=== PATIENT | female | born 1940 | race Caucasian/White ===

== ENCOUNTER 2016-11-15 12:41 | Emergency (ER) | payer MEDICARE, OTHER ==
[~2016-11-15] VITALS: Ht 157.5 cm; Wt 58.6 kg
[~2016-11-15 12:41] MED LIST: ALBU8.5H2 INHALATION; BIOT1CAP3 PO; CALC1TAB23 PO; CYCL5TAB PO; ESTR0.5T4 VAGINAL; FERR-83 PO; FOLI0.4T2 PO; FUR20 PO; GABA-502 PO; LOSA25TA21 PO; METO50TA3 PO; MILK175C4 PO; MONT10TA23 PO; MULT-908 PO; MYCO500T3 PO; OMEG-38 PO; OMEP20CA11 PO; PROP225T PO; RES15 PO; RITUX IV; WARF2TAB7 PO; WARF2TAB9 PO
[2016-11-15 12:48] VITALS: BP 160/85; PULSE 77; RESP 16; O2SAT 93
[2016-11-15 13:07] LABS: BASOPHILS % (AUTO) 0.3 % (0-3); EOSINOPHILS % (AUTO) 0.1 % (0-5); MONOCYTES % (AUTO) 6.5 % (4-12); Mean Corpuscular Hemoglobin 34.5 pg (27.0-35.0); Mean Corpuscular Volume 104.9 fL (81-100); NEUTROPHILS % (AUTO) 84.1 % (40-74); Platelet Count 235 bil/L (150-400)
[2016-11-15 13:23] LABS: Magnesium 2.3 mg/dL (1.6-2.6)
[2016-11-15] MEDS ORDERED: Ondansetron 2 mg/mL 2 mL Inj ONE ×2 (13:32→13:35)
[2016-11-15] MEDS ORDERED: Ondansetron 2 mg/mL 2 mL Inj IVPUSH ONE (13:35)
[2016-11-15] MEDS ORDERED: 0.9% Sodium Chloride 1,000 ML IV ONE (13:35)
[2016-11-15] MEDS: HYDROmorphone 0.5 mg/0.5 mL iSecure Syringe IVPUSH PRN ×2 (13:48→14:53)
--- NOTE | 2016-11-15 14:14 | DRSVH ---
PROCEDURE: X-RAY CHEST, TWO VIEWS ([id number]) INDICATIONS: 75 year-old female with chest pain and nausea since last night. TECHNIQUE: 2 views of the chest were acquired. COMPARISON: [facility], CR, XR CHEST 2VW, 08/20/2016, 18:48. [facility], CR , XR CHEST 2VW, 11/21/2015, 15:11. [facility], CR, XR CHEST 1VW (PORTABLE), 04/07/2015, 1: 46. FINDINGS: Surgical changes and devices: Multiple abdominal surgical clips are again noted. Lungs and pleura: No pleural effusions or pneumothorax. Lung volumes are decreased, with patchy ling ular and retrocardiac atelectasis. Mediastinum: Mediastinal contours are normal. Heart size is normal. There is aortic atherosclerosi s. Bones and chest wall: No suspicious bony abnormalities. Soft tissues appear unremarkable. IMPRESSION: Decreased lung volumes, with patchy left lower lung atelectasis. Dictated by: Miguel Vera M.D. on 11/15/2016 at 14:10 Approved by: Miguel Vera M.D. on 11/15/2016 at 14:12
[2016-11-15 14:44] VITALS: BP 152/84; PULSE 83; RESP 21; O2SAT 88
--- NOTE | 2016-11-15 14:44 | ED.REPORT ---
HPI-Abd Pain F 40 and Over Date of Service Nov 15, 2016 ED Provider: Samm Petty MD Pt is a 75 year old female with a hx of multiple GI surgeries, Afib on Warfarin , CHF, CAD, hyperlipidemia, and HTN presenting to the ED complaining of epigastric abdominal pain radiating to her back onset yesterday. Associated symptoms include nausea and vomiting (started in the ED after pain medication), and diarrhea. Denies bloody stools, constipation, chest pain, SOB, fever, chills , dysuria, cough, or hematuria. She states that she gets episodes like this quite frequently due to her many abdominal surgeries, and that she can usually handle it at home. Nursing Notes Stated Complaint: ABDOMINAL PAIN Chief Complaint: Female Abdominal Pain Nursing Notes Reviewed: Yes Allergies: Coded Allergies: Penicillins (Verified Allergy, Severe, SWELLING, 11/21/15) Sulfa (Sulfonamide Antibiotics) (Verified Allergy, Unknown, 11/21/15) clonidine (Verified Allergy, Unknown, 11/21/15) lisinopril (Verified Allergy, Unknown, 11/21/15) morphine (Verified Allergy, Unknown, 11/16/15) N/V Scheduled Albuterol HFA (Proair HFA) 8.5 Gm Hfa.aer.ad 2 PUFFS INHALATION Q4H Calcium Carbonate/Vitamin D3 (Os-Gagandeep 500+D3 Caplet) 500 Mg-600 Tablet 1 EACH PO DAILY Calcium Carbonate/Vitamin D3 (Os-Gagandeep 500+D3 Caplet) 500 Mg-600 Tablet 1 EACH PO DAILY Estradiol (Estrace) 0.5 Mg Tablet 0.1 MG VAGINAL WEEKLY Ferrous Sulfate (Ferrous Sulfate) 325 Mg Tablet 325 MG PO DAILY Folic Acid (Folic Acid) 0.4 Mg Tablet 0.4 MG PO DAILY Furosemide (Furosemide) 20 Mg Tab 20 MG PO BID Gabapentin (Gabapentin) 300 Mg Capsule 300 MG PO TID Losartan Potassium (Losartan Potassium) 25 Mg Tablet 50 MG PO HS Metoprolol Tartrate (Metoprolol Tartrate) 50 Mg Tablet 50 MG PO BID Milk Thistle Seed Extract (Milk Thistle) 175 Mg Capsule 175 MG PO DAILY Montelukast (Montelukast) 10 Mg Tablet 10 MG PO HS Multivits Min/Iron/FA/Herb#186 (Hair, Skin & Nails Caplet) 1 Each Tablet 1 EACH PO DAILY Mycophenolate Mofetil (Mycophenolate Mofetil) 500 Mg Tablet 1,000 MG PO BID [place]-3/Dha/Epa/Fish Oil (Fish Oil 1,000 mg Softgel) 1 Each Capsule 1 EACH PO DAILY Omeprazole (Omeprazole) 20 Mg Capsule.dr 20 MG PO BID Propafenone (Propafenone) 225 Mg Tablet 225 MG PO BID Warfarin Sodium (Warfarin Sodium) 2 Mg Tablet 4 MG PO QPM take 2 tablets daily exept 1 2mg tablet on Saturday Warfarin Sodium (Jantoven) 2 Mg Tablet 4 MG PO DAILY Scheduled PRN Cyclobenzaprine (Cyclobenzaprine) 5 Mg Tablet 5 MG PO TID PRN PRN Spasm Ondansetron ODT (Zofran ODT) 4 Mg Tablet 4 MG PO Q4H PRN PRN For Nausea Temazepam (Temazepam) 15 Mg Capsule 15 MG PO HS PRN PRN For Insomnia Miscellaneous Medications Biotin (Biotin) 1 Mg Capsule 1 MG PO Rituximab (Rituxan) 100 Mg/10 Ml Vial 1,000 MG IV General Time Seen by MD: 14:28 Chief Complaint Abdominal pain Hx Obtained From: Patient, EMS Arrived By: Ambulance Sudden in Onset?: No Onset Occurred: Yesterday Symptom Duration: Since onset Progression since Onset: Constant Location: : Epigastric Quality: Painful Severity: Current: Severe Severity: Maximum: Severe Recent Healthcare: No recent doctor visit, No recent hospitalization Similar Sx Previous: Yes Past Medical History Past Medical History Notes: PCP: Dr. Alex Franklin Pt seen in ED 3 days ago for bleeding, INR 10, Head CT normal, given vit K and warfarin held Past Medical History Rheumatoid arthritis on prednisone Chronic anemia paroxysmal atrial fibrillation (anticoagulated on warfarin) on propafenone ho DVT GERD Reports: Congestive heart failure, Coronary artery disease, GERD, Hyperlipidemia , Hypertension Reports: Atrial fibrillation Past Surgical History Multiple abdominal surgeries Back surgery 4 Rouex on Y ho colectomy Spinal surgery L3-5 Reports: Cholecystectomy Reports: Carpal tunnel Smoking History Never Smoker Social History Alcohol Use: Denies alcohol use Drug Use: Denies drug use Other Social History: Local resident Ambulatory Status Independent Review of Systems Constitutional: Denies: Chills, Fever Respiratory: Denies: Non-productive cough, Shortness of breath Cardiovascular: Denies: Chest pain GI: Reports: Abdominal pain, Diarrhea, Nausea, Vomiting, Denies: Bloody/tarry stool, Constipation Female: Denies: Dysuria, Hematuria Musculoskeletal: Reports: Back pain Complete sys rev & neg: except as marked. Physical Exam Vital Signs Vital Signs (First) Date Time Temp Pulse Resp B/P Pulse Ox O2 Delivery O2 Flow Rate FiO2 11/15/16 12:48 36.9 77 16 160/85 93 Room Air Initial VS: Reviewed Head / Eyes: Atraumatic, Normocephalic, PERRL ENT: Mucous membranes moist, Conjunctiva normal, No scleral icterus Extremities: Vascular intact, Neuro intact, No swelling, No tenderness Skin: Warm, Dry, No cyanosis Neurologic: Alert, Oriented, Nonfocal Psychiatric: Mood/affect normal, Behavior normal, Normal thought content General/Constitutional: Awake, Alert, No acute distress Respiratory / Chest: Atraumatic, Breath sounds NL, Breath sounds = bilat, No respiratory distress Cardiovascular: Heart rate NL, Regular rhythm, Heart sounds NL, No murmurs Abdomen: Atraumatic, Soft Mild epigastric tenderness Interpretation & Diagnostics Lab Results Interpretation Result Diagram: 11/15/16 1248 11/15/16 1248 Test 11/15/16 12:48 White Blood Count 7.1th/mm3 (3.8-10.1) Red Blood Count 3.88mil/mm3 (3.90-5.20) Hemoglobin 13.4g/dL (12.0-15.6) Hematocrit 40.7% (35.0-46.0) Mean Corpuscular Volume 104.9fL (81-100) Mean Corpuscular Hemoglobin 34.5pg (27.0-35.0) Mean Corpuscular Hemoglobin Concent 32.9% (32.0-37.0) Red Cell Distribution Width 11.8% (12.3-15.4) Platelet Count 235bil/L (150-400) Neutrophils (%) (Auto) 84.1% (40-74) Lymphocytes (%) (Auto) 8.6% (14-46) Monocytes (%) (Auto) 6.5% (4-12) Eosinophils (%) (Auto) 0.1% (0-5) Basophils (%) (Auto) 0.3% (0-3) Sodium Level 136mEq/L (134-144) Potassium Level 4.3mEq/L (3.5-5.2) Chloride Level 94mEq/L (97-108) Carbon Dioxide Level 27mmol/L (18-29) Blood Urea Nitrogen 21mg/dL (8-27) Creatinine 0.88mg/dL (0.57-1.00) Estimat Glomerular Filtration Rate 90mL/min (>59) Glucose Level 162mg/dL (60-99) Calcium Level 10.1mg/dL (8.5-10.1) Magnesium Level 2.3mg/dL (1.6-2.6) Total Bilirubin 0.4mg/dL (0.0-1.2) Aspartate Amino Transf (AST/SGOT) 40U/L (0-50) Alanine Aminotransferase (ALT/SGPT) 31U/L (0-32) Alkaline Phosphatase 122U/L (25-165) Troponin T < 0.010ug/L (0.0-0.011) Total Protein 8.4g/dL (6.4-8.4) Albumin 4.2g/dL (3.4-5.0) Lipase 51U/L (13-60) ECG Interpretation ECG Interpretation: T wave inversions v1-v5 which is unchanged from old. Time: 13:19 Interpreted by: ED physician Normal ECG Interpretation: Normal rate (74), Normal sinus rhythm X-Ray Chest Interpretation Chest Xray Interpretation: IMPRESSION: Decreased lung volumes, with patchy left lower lung atelectasis. Dictated by: Miguel Vera M.D. on 11/15/2016 at 14:10 View: AP & lat Interpretation / Wet Read by: Interpret - Radiologist Re-Eval/Medical Decision Med Decision/Clinical Course 75-year-old female with multiple abdominal surgeries abdominal ulcer, lysis of adhesions with chronic abdominal pain presenting with her typical chronic abdominal pain. She is normally able to manage this at home every once in while comes in for pain medications for this. There is nothing new about her symptoms. She did vomit briefly after receiving Dilaudid but felt much better after time and antiemetics. She believes this is from the Dilaudid and she felt fine previously. Her pain was resolved controlled. Labs are unremarkable. Abdominal exam was benign. Likely acute exacerbation of her typical chronic abdominal pain. Patient requested to go home. Return precautions given. Re-Evaluation/Progress : Time of Eval: 16:39 Patient Status: Condition improved Re-Evaluation/Progress Note: Pt is feeling better. Discussed plan for discharge. Pt understands and agrees with plan. Counseled Regarding: Diagnosis, Lab results, Need for follow-up, When/why to return to ED Discharge & Departure Primary Impression: Chronic abdominal pain Additional Impression: Nausea & vomiting Vomiting type: unspecified Vomiting Intractability: intractable Qualified Code: R11.2 - Nausea with vomiting, unspecified Disposition: Home Discharge Condition All VS Reviewed: Yes Condition: Improved Patient Instructions: Chronic Abdominal Pain (ED) Additional Instructions: Your labs, EKG and chest x ray all looked reassuring. They did not show any signs of dangerous cause for your abdominal pain. Drink plenty of fluids. I would recommend listing Dilaudid as one of you allergies from now on since it gave you the nausea and vomiting. Return to the ER if you develop any fever, nausea, vomiting, increased abdominal pain, bloody stool, or any other new or worsening symptoms. Referrals: Alex Franklin (PCP) (Family) Scribe Attestation Portions of this note were transcribed by Radha Lee. I, Dr. Petty personally performed the history, physical exam and medical decision-making; I reviewed and confirmed the accuracy of the information in the transcribed note. Signed by: Brianda Altman, 11/15/2016. copies to: Alex Franklin Ben M MD Nov 15, 2016 14:44 RADHA LEE Nov 15, 2016 14:48
[2016-11-15] MEDS ORDERED: MetoCLOpramide 5 mg/mL 2 mL Inj IVPUSH ONE (15:00)
[2016-11-15] MEDS ORDERED: Promethazine Inj 25 MG in 0.9% Sodium Chloride 50 ML IV ONE ×2 (15:20→16:05)
[2016-11-15 16:05] VITALS: BP 143/78; PULSE 88; RESP 17; O2SAT 95
[2016-11-15] MEDS ORDERED: ONDA4TAB9 PO (16:41)
[2016-11-15 17:44] VITALS: BP_SYST 137; PULSE 72; RESP 16; O2SAT 98
== END 2016-11-15 17:45 | disposition home or self-care (01) ==
LOC: EDUNIT# 12:41 → SED 12:41 → EDBD 12:41 → SED 17:45
DX: R10.13 Epigastric pain (principal); R11.2 Nausea with vomiting, unspecified; K21.9 Gastro-esophageal reflux disease without esophagitis; I50.9 Heart failure, unspecified; I25.10 Atherosclerotic heart disease of native coronary artery without angina pectoris; E78.5 Hyperlipidemia, unspecified; I11.0 Hypertensive heart disease with heart failure; I48.91 Unspecified atrial fibrillation; Z86.718 Personal history of other venous thrombosis and embolism; Z88.0 Allergy status to penicillin; Z88.2 Allergy status to sulfonamides; Z88.8 Allergy status to other drugs, medicaments and biological substances; Z79.01 Long term (current) use of anticoagulants
CPT/HCPCS: 36415; 71020; 80053; 83690; 83735; 84484; 85025; 93005; 96361; 96374; 96375; 99285; J1170; J2550; J2765; J7030